=== PATIENT | female | born 1970 | race Caucasian/White ===

== ENCOUNTER 2024-10-22 12:05 | Emergency (ER) | payer OTHER, SELFPAY ==
[2024-10-22] VITALS (9 sets, daily range): BP systolic 110–132; BP diastolic 61–99
--- NOTE | 2024-10-22 12:33 | ED.GENMED ---
History of Present Illness
General
Chief Complaint: Psychiatric Problem
Time Seen by Provider: 10/22/24 12:13
History of Present Illness
History of Present Illness:
54-year-old female with history of alcohol abuse presenting under 302. Per 302, patient has been disruptive, states she is looking for her son and approaching juveniles calling them her son. Patient with hyperreligious statements such as 'God save
us' and '[place] '. Patient very limited historian, unable to answer any direct questions, persistently going back to hindu statements. Patient arrives disheveled and unkept. No additional history obtained at this time
Past History
Past History
ED Past Medical History: Psychiatric (anxiety, PTSD, alcohol abuse)
ED Past Surgical History: None
Social History
Tobacco: Non-smoker
Alcohol: Binge drinker
Drug: None
Personal:
Living: with family
Employment: Employed
Phy Exam
Physical Exam
Physical Exam:
General: Disheveled, unkept
HEENT: protecting airway
Neck: appears supple
CV: Normal heart rate
Resp: No accessory muscle use, no increased work of breathing
Abd: no distension
Extremities: No deformities, no swelling, no erythema
Neuro: alert, no focal neurologic deficit
: deferred
Rectal: deferred
Psych: Normal affect
Skin: Intact
Course
Orders/Labs/Results
Orders:
Orders
10/22/24 12:28
Acetaminophen Urgent
Alcohol Urgent
Complete Blood Count/With Diff Urgent
Comprehensive Metabolic Panel Urgent
Salicylate Urgent
Urine Drug Abuse Screen Urgent
Lorazepam [Ativan] 2 mg IM NOW STA
MDM/Problems Addressed
MDM/Problems Addressed:
54-year-old female with history of alcohol abuse presenting under 302. Vital signs are ____.
Patient is in no acute distress on arrival, however is very limited historian, appears to have delusions, possibly hallucinations. Very hyperreligious statements. Does not appear to be clinically intoxicated, known history of alcohol abuse.
Concern for acute psychosis. Patient under 302, placed under one-to-one observation. Will administer Ativan IM for patient safety, keep trying to leave the hospital and get out of bed. Plan for laboratory analysis. Crisis at bedside on arrival,
plan for psychiatric evaluation.
*Critical Care Note
Total Time (30-74mins, 75-104mins- exclusive of procedures): Not Applicable
ED Attending Note
-
Portions of this chart may have been created with voice recognition software.� Occasional wrong word or��sound alike� substitutions may have occurred due to the inherent limitations of voice recognition software.
Discharge Plan
Departure
Prescriptions:
No Action
escitalopram oxalate 10 MG tablet
20 mg PO QPM
gabapentin 300 MG capsule
100 mg PO PRN PRN (Reason: TID)
Patient Comments:
11/03/2020: last filled 09/16/20, prescribed as 2 caps (600mg) BID
mirtazapine 15 mg Tablet
15 mg PO HS
aripiprazole [Abilify] 15 mg Tablet
15 mg PO DAILY
Discharge Date and Time
Print Language: SWEDISH
[2024-10-22] MEDS: ATIVAN 2 MG IM (12:36)
[2024-10-22 13:33] LABS: % Basophils 0.7 % (0-2); % Eosinophils 0.8 % (0-6); % Immature Granulocytes 0.2 % (0-0.5); % Lymphocytes 17.9 % (20.5-51.1); % Monocytes 5.1 % (1.7-9.3); % Neutrophils 75.3 % (42.2-75.2); Absolute Basophils 0.1 10^3/uL (0-0.2); Absolute Eosinophils 0.1 10^3/uL (0-0.7); Absolute Lymphocytes 1.5 10^3/uL (1.2-3.4); Absolute Monocytes 0.4 10^3/uL (0.1-0.6); Absolute Neutrophils 6.5 10^3/uL (1.4-6.5); Hemoglobin 14.9 g/dL (12.0-16.0); Mean Corp Hgb Conc. 33.9 g/dL (33.0-37.0); Mean Corpuscular Hgb 30.5 pg (27.0-31.0); Mean Platelet Volume 9.5 fL (7.4-10.4); Nucleated Red Blood Cells % 0 %; Platelet Count 269 10^3/uL (130-400); Red Blood Cell Count 4.89 10^6/uL (4.20-5.40); Red Cell Dist. Width 13.2 % (11.5-14.5); White Blood Cell Count 8.6 10^3/uL (4.8-10.8)
--- NOTE | 2024-10-22 13:35 | EDRN ---
Pt no longer attempting to get out of room. Pt relaxed as if going to nap. Pt given water and carlitos clarence to drink that has not started drinking as of yet. Mari from crisis was in to speak w/ pt.
[2024-10-22 13:47] LABS: ALT (SGPT) 14 U/L (0-35); AST (SGOT) 15 U/L (14-36); Acetaminophen < 10 ug/ml (10-30); Albumin 4.3 g/dl (3.5-5.0); Alkaline Phosphatase 64 U/L (38-126); Blood Urea Nitrogen 18 mg/dl (7-17); Calcium 9.8 mg/dl (8.4-10.2); Carbon Dioxide 26 mmol/L (22-30); Chloride 104 mmol/L (98-107); Glucose 91 mg/dl (70-99); Potassium 3.8 mmol/L (3.5-5.1); Salicylate < 1.0 mg/dl (2.0-20.0); Sodium 141 mmol/L (135-145); Total Bilirubin 2.3 mg/dl (0.2-1.3); Total Protein 6.4 g/dl (6.3-8.2); eGFR > 60.00
[2024-10-22 13:48] LABS: Alcohol None Detected
--- NOTE | 2024-10-22 14:03 | EDRN ---
security has left, no longer needed as pt is sleeping. Pt hooked up to monitor for BP and POX at this time.
--- NOTE | 2024-10-22 14:10 | EDRN ---
Tech watching monitor at this time as monitor outside of room, bed moved up near door w/ monitor plugged in outside of room and ED PCT still able to see pt lying on stretcher. Pt refused to drink at this time. Pt somnolent and sleepy, napping on and
off but still responding verbally to this nurse when in room.
--- NOTE | 2024-10-22 15:33 | W.PN.UPDATE ---
Update Note
Progress Note Update
Pt seen for 302 exam, reviewed with Crisis staff. Pt admits to allegations of neglect of hygiene, reports decreased appetite recently. Pt spontaneously expresses delusions about talking to God through her phone, God uses her 's voice. Pt
state she can talk to spirits, c/o feeling a lot of stress from the spirit world. Congregational ideation appears out of proportion to pt's baseline beliefs; states she is Lutheran. Pt lying on side starting to nod off, becoming sedated after receiving
Ativan for disorganized behavior/following people.
Imp: Unspecified Psychotic d/o, R/o MDD with psychotic features
Rec: [id number] upheld; inpatient psychiatric placement
Will follow
--- NOTE | 2024-10-22 16:45 | EDRN ---
Pt fully awake at this time and every 15 minute monitoring stopped at this time. One to One observation continues w/ [facility] ED PCT.
--- NOTE | 2024-10-22 17:16 | EDRN ---
Pt ambulated to w/ tech and has provided the urine spec at this time.
--- NOTE | 2024-10-22 17:36 | EDRN ---
Mari from crisis just updated on pt now fully awake. She updated this RN that she has a couple of places that may accept this pt.
--- NOTE | 2024-10-22 18:15 | EDRN ---
Pt on cell phone calling various people. Pt saying she wants PCT to save her. Pt attempting to walk out of room. Security outside of room w/ [facility] ED PCT at this time. Pt received dinner tray.
[2024-10-22 18:24] LABS: Amphetamines Negative (Negative); Barbiturates Negative (Negative); Benzodiazepines Negative (Negative); Buprenorphine Negative (Negative); Cocaine Negative (Negative); Marijuana Negative (Negative); Methadone Negative (Negative); Methamphetamines Negative (Negative); Opiates Negative (Negative); Phencyclidine Negative (Negative); Tricyclic Antidepressants Negative (Negative)
== END 2024-10-22 22:34 ==
LOC: EMR 12:05
PROVIDERS: EMERGENCY PHYSICIAN Student in an Organized Health Care Education/Training Program
DX: F29 Unspecified psychosis not due to a substance or known physiological condition (principal); F41.9 Anxiety disorder, unspecified
CPT/HCPCS: 96372; 99285; 80053; 80143; 80179; 80306; 82077; 85025

== ENCOUNTER 2024-12-04 10:26 | Emergency (ER) | payer MEDICARE, OTHER, SELFPAY ==
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
[2024-12-04 10:46] VITALS: BP 156/111
[2024-12-04 10:52] LABS: % Basophils 0.6 % (0-2); % Eosinophils 3.7 % (0-6); % Immature Granulocytes 0.4 % (0-0.5); % Lymphocytes 25.6 % (20.5-51.1); % Monocytes 4.1 % (1.7-9.3); % Neutrophils 65.6 % (42.2-75.2); Absolute Basophils 0.1 10^3/uL (0-0.2); Absolute Eosinophils 0.4 10^3/uL (0-0.7); Absolute Lymphocytes 2.8 10^3/uL (1.2-3.4); Absolute Monocytes 0.5 10^3/uL (0.1-0.6); Absolute Neutrophils 7.2 10^3/uL (1.4-6.5); Hematocrit 43.4 % (37.0-47.0); Hemoglobin 14.6 g/dL (12.0-16.0); Mean Corp Hgb Conc. 33.6 g/dL (33.0-37.0); Mean Corpuscular Hgb 30.2 pg (27.0-31.0); Mean Corpuscular Volume 89.9 fL (81.0-99.0); Mean Platelet Volume 8.7 fL (7.4-10.4); Nucleated Red Blood Cells % 0 %; Platelet Count 293 10^3/uL (130-400); Red Blood Cell Count 4.83 10^6/uL (4.20-5.40); Red Cell Dist. Width 14.1 % (11.5-14.5)
[2024-12-04 11:15] LABS: ALT (SGPT) 24 U/L (0-35); AST (SGOT) 22 U/L (14-36); Acetaminophen < 10 ug/ml (10-30); Albumin 5.2 g/dl (3.5-5.0); Alcohol 234 mg/dl; Alkaline Phosphatase 72 U/L (38-126); Blood Urea Nitrogen 23 mg/dl (7-17); Calcium 9.3 mg/dl (8.4-10.2); Carbon Dioxide 22 mmol/L (22-30); Chloride 110 mmol/L (98-107); Glucose 101 mg/dl (70-99); Potassium 4.5 mmol/L (3.5-5.1); Salicylate < 1.0 mg/dl (2.0-20.0); Sodium 145 mmol/L (135-145); Total Bilirubin 0.8 mg/dl (0.2-1.3); Total Protein 7.8 g/dl (6.3-8.2); eGFR > 60.00
--- NOTE | 2024-12-04 14:23 | CON.MD ---
Consultation - Medical
-
patient seen chart reviewed. this consult was done today december 04, 2024. the patient is a 54 year old woman . a friend called ems when she expressed suicidal ideation. she was brought to ER. her blood etoh was 234. she does have hx of etoh
dependence. she can give little hx. she repeats over and over that she must get home at 330 pm to see her children and does not seem to understand at this point she is in no condition to see her children who reside with their father from whom she
is . dr boyle filed a 302 petition given his concern for her being a risk to herself and possibly others. he notes that she was reportedly drinking heavily since recent release from psych facility where she was admitted for psychosis. her
behavior in the er was noted to be erratic and bizarre. she is unable to give a coherent hx and was described by him as 'delusional hyperreligious and tangential. he expressed the feat that given her suicidal threats etoh use and poor judgment she
was at high risk for harm to self and others. he mentioned that she appeared unkempt and poorly groomed and he was concerned re her abilify to care for self. patient received saphris 10 mg today from er md.
past psych hx patient admitted several times to in pt psych the last in october. and then one or two years prior to [place]. it appears she is lost to followup after psych hospitalization. she was seen here in 2019 by psych and referrred for rx
but unknown if she ever followed up. she cannot tell me what psych meds she took recently . i do know she was prescribed lexapro in [address] carrasco's note. also possibly abilify gabapentin and remeron
medical hx labs today are unremarkable bun is 23 likely a little dehydration creatinine is nl liver enzymes are okay hgb 14.6
fh from [facility] note father w hx depression anx and ptsd
substance abuse alcohol. patient said consumed only a little and last drink 'monday (not likely) has been in rehab in the past at [facility] from record from h. lost custody of kids when they were [age] and eight reportedly. 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
mse pacing repeating over and over that she needs to see her kids . unable to engage in discussion of other relevant material. speech and thought process perseverative may be underlying psychosis mood is irritable affect labile denies si aver
intelligence insight judgment poor
dx etoh use d/o severe ptsd by hx unspec depression
plan uphold 302 hospitalize ativan prn etoh wd and anxiety. patient already had 10 mg saphris given by ER md. will begin search for hospital bed.
[2024-12-04] MEDS: ATIVAN 1 MG PO (14:38)
[2024-12-04] MEDS: SAPHRIS 10 MG SL (14:38)
[2024-12-04 17:04] LABS: HCG, Serum Qualitative Screen Negative
[2024-12-04 20:01] VITALS: BP 123/70
== END 2024-12-04 20:19 ==
LOC: EMR 10:26
PROVIDERS: CONSULT PHYSICIAN Psychiatry & Neurology Psychiatry; EMERGENCY PHYSICIAN Emergency Medicine
DX: F10.10 Alcohol abuse, uncomplicated (principal); R45.851 Suicidal ideations; F29 Unspecified psychosis not due to a substance or known physiological condition; F43.10 Post-traumatic stress disorder, unspecified; F41.8 Other specified anxiety disorders
CPT/HCPCS: 99283; 80053; 80143; 80179; 82077; 84703; 85025

== ENCOUNTER 2025-03-06 12:44 | Emergency (ER) | payer OTHER, MEDICARE, SELFPAY ==
[2025-03-06 13:06] VITALS: BP 126/102
--- NOTE | 2025-03-06 13:26 | EDRN ---
Dr. Hernandez presently speaking w/ pt.
--- NOTE | 2025-03-06 13:46 | ED.GENMED ---
History of Present Illness
General
Chief Complaint: Crisis Evaluation
Source: patient
Exam Limitations: other
Time Seen by Provider: 03/06/25 13:27
History of Present Illness
History of Present Illness:
This patient is a 54-year-old female who presents to the emergency department due to concerns regarding patient's ability to care for herself. She was noted to be disheveled, malodorous, and is reportedly not eating or taking medications associated
with weight loss. Patient is currently having great difficulty communicating, appears agitated and can speak, but thorough history limited by her level of anxiety at this time.
Past History
Past History
ED Past Medical History: Psychiatric (anxiety, PTSD, alcohol abuse)
ED Past Surgical History: None
Social History
Tobacco: Non-smoker
Alcohol: Binge drinker
Drug: None
Personal:
Phy Exam
Physical Exam
Physical Exam:
GENERAL: Alert , in no apparent distress, unkempt
EYE: pupils equal and reactive
NECK: Supple, no significant adenopathy.
ENT: o/p clr, mmm.
CARDIAC: Regular rate and rhythm .
ABD soft, nt, nd
EXTREM no c/c/e
NEURO: awake, alert, grossly nonfocal
SKIN: Warm and dry, skin intact.
MUSCULOSKELETAL: No edema, well perfused.
PSYCH: agitated, anxious
Course
Orders/Labs/Results
Orders:
Orders
03/06/25 13:38
Midazolam HCl [Versed] 2 mg IV NOW STA
Test Result ONCE
03/06/25 14:28
Complete Blood Count/No Diff Urgent
Comprehensive Metabolic Panel Urgent
HCG, Serum Qualitative Screen Urgent
03/06/25 15:36
Crisis Consult Urgent
Reason for Consult: crisis
03/06/25 15:49
Midazolam HCl [Versed] 2 mg IV NOW STA
Risperidone [Risperdal] 1 mg PO NOW STA
Abnormal Lab Results
03/06/25
14:28
BUN 22 H mg/dl
(7-17)
Calcium 10.3 H mg/dl
(8.4-10.2)
Total Bilirubin 2.0 H mg/dl
(0.2-1.3)
03/06/25 14:28
03/06/25 14:28
Vital Signs
Initial and Last Documented VS:
Initial Vital Signs
Temp Pulse BP Pulse Ox
97.5 F 92 126/102 100
03/06/25 13:06 03/06/25 13:06 03/06/25 13:06 03/06/25 13:06
Last Documented Vital Signs
Temp Pulse BP Pulse Ox
97.5 F 92 126/102 100
03/06/25 13:06 03/06/25 13:06 03/06/25 13:06 03/06/25 13:48
*Pulse Oximetry
SaO2: 100
Oxygen Mode of Delivery: Room air
Update Note
Update Note:
Patient presents to the Emergency Department with ___concern regarding patient's ability to care for self
Number and Complexity of Problems Addressed at the Encounter
� Chronic conditions affecting care:
� Acute Exacerbation and/or Progression of Chronic Illness:
� Differential Diagnosis includes: But not limited to major depressive disorder, schizophrenia, dehydration, electrolyte disorder, etc. etc.
Amount and/or Complexity of Data to be Reviewed and Analyzed
� I performed an independent evaluation of and my interpretation is:
EKG:
CT:
Xrays:
Laboratory Studies:
Other:
� Review of other/old records reveals:
� Clinical information was obtained by an independent historian:
� Prescriptions/Medications Considered but not given:
� Further testing considered but not performed:
Risk of Complications and/or Morbidity or Mortality of Patient Management
� Social determinants of health affecting care:
� Discussion with other providers (PCP, Hospitalists, Consultants, etc): Case discussed with psychiatry, will get labs and administer benzodiazepine at this time, and then revisit more thorough history with her. Patient will
need to be hospitalized. He states that patient's children are under the custody of patient's ex- and are safe.
� Escalation of care including admission/observation vs risk of discharge considered:
ED Attending Note
-
Portions of this chart may have been created with voice recognition software.� Occasional wrong word or��sound alike� substitutions may have occurred due to the inherent limitations of voice recognition software.
Discharge Plan
Departure
Patient Disposition: Psych Facility
Date of Disposition: 03/06/25
Time of Disposition: 15:50
Condition: Critical
Discharge Problem:
Anxiety
Prescriptions:
No Action
escitalopram oxalate 10 MG tablet
20 mg PO QPM
gabapentin 300 MG capsule
100 mg PO PRN PRN (Reason: TID)
Patient Comments:
11/03/2020: last filled 09/16/20, prescribed as 2 caps (600mg) BID
mirtazapine 15 mg Tablet
15 mg PO HS
aripiprazole [Abilify] 15 mg Tablet
15 mg PO DAILY
Referrals:
UNKNOWN - PT NOT,INTERVIEWE [Family Provider]
Interventions
Interventions:
*Risk Screen - Suicide Last Done: 03/06/25 14:09
*General Assessment Last Done: 03/06/25 14:10
*Neglect/Abuse Screening Last Done: 03/06/25 14:09
*ED- Fall Risk Assessment Last Done: 03/06/25 13:09
*ED COVID-19 Vaccine History Last Done: 03/06/25 13:09
ED-Psychological Assessment Last Done: 03/06/25 13:09
Discharge Date and Time
Print Language: LUXEMBOURGISH
[2025-03-06 14:09] VITALS: BMI 18.5
--- NOTE | 2025-03-06 14:16 | EDRN ---
Dr. Mcbride was in to see pt.
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
[2025-03-06] MEDS: VERSED 2 MG IV ×3 (14:25→18:58)
[2025-03-06 14:37] LABS: Hematocrit 46.4 % (37.0-47.0); Hemoglobin 15.8 g/dL (12.0-16.0); Mean Corp Hgb Conc. 34.1 g/dL (33.0-37.0); Mean Corpuscular Volume 87.7 fL (81.0-99.0); Platelet Count 234 10^3/uL (130-400); Red Cell Dist. Width 12.4 % (11.5-14.5)
[2025-03-06 14:52] LABS: ALT (SGPT) 24 U/L (0-35); AST (SGOT) 19 U/L (14-36); Albumin 4.9 g/dl (3.5-5.0); Alkaline Phosphatase 57 U/L (38-126); Blood Urea Nitrogen 22 mg/dl (7-17); Calcium 10.3 mg/dl (8.4-10.2); Carbon Dioxide 27 mmol/L (22-30); Chloride 102 mmol/L (98-107); Estimated Creatinine Clearance 96 ml/min; Glucose 95 mg/dl (70-99); Potassium 3.9 mmol/L (3.5-5.1); Sodium 140 mmol/L (135-145); Total Protein 7.3 g/dl (6.3-8.2); eGFR > 60.00
[2025-03-06 14:55] LABS: HCG, Serum Qualitative Screen Negative
[2025-03-06 15:30] VITALS: BP 127/85
--- NOTE | 2025-03-06 16:07 | EDRN ---
utility worker [employer] who is working w/ pt was called and informed about pt's request to go to [facility].
[2025-03-06] MEDS: RISPERDAL 1 MG PO (16:30)
--- NOTE | 2025-03-06 17:12 | EDRN ---
Crisis requested urine spec. Urine spec obtained and sent.
--- NOTE | 2025-03-06 17:39 | EDRN ---
Pt ordered supper tray at this time. Crisis requested a urine drug screen now completed and called and left a message for pt's nursing support worker. Pt has been accepted to [facility] in pt psychiatric facility and transport arranged for pt to leave
around 20:30.
--- NOTE | 2025-03-06 18:38 | EDRN ---
Dr. Mcbride TT'd at this time as pt remains quite anxious, agitated and fidgity for something prior to leaving. Pt is scheduled to leave at 20:00- 20:30 via [facility] ambulance to [facility].
[2025-03-06 21:57] VITALS: BP 128/75
== END 2025-03-06 21:59 ==
LOC: EMR 12:44
PROVIDERS: EMERGENCY PHYSICIAN Emergency Medicine
DX: F41.9 Anxiety disorder, unspecified (principal)
CPT/HCPCS: 96374; 96376; 99284; 80053; 80306; 84703; 85027